=== PATIENT | male | born 1980 | race Caucasian/White ===

== ENCOUNTER 2022-02-27 19:47 | Emergency (ER) | payer MEDICAID ==
[~2022-02-27] VITALS: Ht 167.6 cm; Wt 194.0 kg
[~2022-02-27 19:47] MED LIST: LEVA0.31 IH
[2022-02-27 23:03] VITALS: BP 102/56
[2022-02-28 00:16] LABS: AMPHET/METH SCREEN,URINE NEGATIVE (NEGATIVE); BARBITURATE SCREEN, URINE NEGATIVE (NEGATIVE); BENZODIAZEPINES SCREEN,URINE NEGATIVE (NEGATIVE); CANNABINOID SCREEN,URINE POSITIVE (NEGATIVE); COCAINE SCREEN,URINE NEGATIVE (NEGATIVE); METHADONE SCREEN, URINE NEGATIVE (NEGATIVE); OPIATE SCREEN,URINE NEGATIVE (NEGATIVE)
[2022-02-28 00:17] LABS: PHENCYCLIDINE SCREEN,URINE NEGATIVE (NEGATIVE)
== END 2022-02-28 00:06 | disposition home or self-care (01) ==
LOC: EMS 19:54
DX: F12.129 Cannabis abuse with intoxication, unspecified (principal)
CPT/HCPCS: 80307; 99284